=== PATIENT | female | born 1995 | race Caucasian/White ===

== ENCOUNTER 2017-05-16 07:38 | Emergency (ER) | payer OTHER ==
[~2017-05-16] VITALS: Ht 154.9 cm; Wt 75.9 kg
[2017-05-16 07:43] VITALS: BP 114/81
[2017-05-16] MEDS ORDERED: DIPH,PERTUSS(ACELL),TET VAC/PF 0.5 ML IM-VACC ONE ×2 (08:30→09:04)
[2017-05-16] MEDS ORDERED: LIDOCAINE 1%, 20ML SQ ONE (08:30)
== END 2017-05-16 09:40 | disposition home or self-care (01) ==
LOC: ED 08:49
DX: S61.252A Open bite of right middle finger without damage to nail, initial encounter (principal); W54.0XXA Bitten by dog, initial encounter; Y93.89 Activity, other specified; Y92.89 Other specified places as the place of occurrence of the external cause; Y99.9 Unspecified external cause status
CPT/HCPCS: 90471; 90715; 99284